=== PATIENT | female | born 1980 | race American Indian/Alaskan Native ===

== ENCOUNTER 2017-03-08 02:52 | Emergency (ER) | payer MEDICAID, MEDICARE ==
[~2017-03-08] VITALS: Ht 167.6 cm; Wt 73.0 kg
[2017-03-08] MEDS ORDERED: KETOROLAC 60MG/2ML VIAL IM STA (04:01)
[2017-03-08 04:24] LABS: HEMOGLOBIN. 11.2 g/dL (12.0-16.0); LYMPHOCYTES % 37.6 % (20.0-50.0); MEAN CORPUSCULAR HEMOGLOBIN 29.6 pg (28.0-32.0); MEAN CORPUSCULAR HGB CONC 33.9 g/dL (31.0-37.0); MEAN CORPUSCULAR VOLUME 87.4 fL (81.0-99.0); MEAN PLATELET VOLUME 7.1 fl (7.4-10.4); MONOCYTES % 10.9 % (2.0-8.0); NEUTROPHILS % 45.5 % (40.0-76.0); PLATELET 214 x1000/uL (130-400); RED BLOOD CELL COUNT 3.78 mill/uL (4.2-5.4); WHITE BLOOD COUNT 5.4 x1000/uL (4.5-11.0)
[2017-03-08 04:26] LABS: CLARITY URINE CLEAR (CLEAR); COLOR URINE YELLOW (YELLOW); GLUCOSE URINE NEGATIVE (NEGATIVE); KETONES URINE NEGATIVE (NEGATIVE); LEUKOCYTE ESTERASE URINE NEGATIVE (NEGATIVE); NITRITE URINE NEGATIVE (NEGATIVE); OCCULT BLOOD URINE NEGATIVE (NEGATIVE); PH URINE 6.5 (4.5-8.0); PROTEIN URINE NEGATIVE (NEGATIVE)
[2017-03-08 04:29] LABS: INR 1.1; PROTHROMBIN TIME 11.3 sec
[2017-03-08 04:37] LABS: ALANINE AMINOTRANSFERASE 14 IU/L (13-61); ALBUMIN 2.6 g/dL (3.4-5.0); ANION GAP 12; CALCIUM 8.9 mg/dL (8.5-10.1); CARBON DIOXIDE 27 mEq/L (21-32); CHLORIDE 109 mEq/L (98-107); INDEX HEMOLYSI 1 (1-3); INDEX ICTERIC 1 (1-4); INDEX LIPEMIC 1 (1-3); LIPASE 105 IU/L (73-393); UREA NITROGEN BLOOD 9 mg/dL (7-21); eGFR > 60 mL/min (>60)
[2017-03-08 06:06] VITALS: BP 116/76
== END 2017-03-08 06:20 | disposition home or self-care (01) ==
LOC: ER 02:56
DX: R10.84 Generalized abdominal pain (principal); I10 Essential (primary) hypertension; E11.9 Type 2 diabetes mellitus without complications; F17.200 Nicotine dependence, unspecified, uncomplicated
CPT/HCPCS: 36415; 80053; 81003; 81025; 83690; 85025; 85610; 96372; 99284; J1885

== ENCOUNTER 2017-10-13 21:40 | Emergency (ER) | payer MEDICARE, MEDICAID ==
[~2017-10-13] VITALS: Ht 167.6 cm; Wt 91.0 kg
[2017-10-13 22:37] VITALS: BP 121/81
[2017-10-14 00:09] LABS: CLARITY URINE CLEAR (CLEAR); COLOR URINE YELLOW (YELLOW); GLUCOSE URINE NEGATIVE (NEGATIVE); KETONES URINE NEGATIVE (NEGATIVE); LEUKOCYTE ESTERASE URINE NEGATIVE (NEGATIVE); NITRITE URINE NEGATIVE (NEGATIVE); OCCULT BLOOD URINE NEGATIVE (NEGATIVE); PROTEIN URINE NEGATIVE (NEGATIVE); SPECIFIC GRAVITY URINE 1.027 (1.005-1.030); UROBILINOGEN URINE 0.2 E.U./dL (0.2-1.0)
== END 2017-10-14 01:07 | disposition left against medical advice (07) ==
LOC: ER 21:40
DX: E11.649 Type 2 diabetes mellitus with hypoglycemia without coma (principal); Z53.21 Procedure and treatment not carried out due to patient leaving prior to being seen by health care provider
CPT/HCPCS: 81003; 81025; 82962

== ENCOUNTER 2019-10-17 08:14 | Emergency (ER) | payer MEDICAID, MEDICARE ==
[~2019-10-17] VITALS: Ht 167.6 cm; Wt 80.0 kg
[2019-10-17 08:17] VITALS: BP 156/76
[2019-10-17] MEDS ORDERED: DIPHENHYDRAMINE 25MG CAPSULE PO ONE (09:15)
[2019-10-17] MEDS ORDERED: DEXAMETHASONE 4MG TABLET PO ONE (09:15)
== END 2019-10-17 09:34 | disposition home or self-care (01) ==
LOC: ER 08:14
DX: B86 Scabies (principal); E11.9 Type 2 diabetes mellitus without complications; I10 Essential (primary) hypertension; F17.200 Nicotine dependence, unspecified, uncomplicated; Z90.49 Acquired absence of other specified parts of digestive tract
CPT/HCPCS: 99281; J8540; Q0163

== ENCOUNTER 2019-10-24 01:56 | Emergency (ER) | payer SELFPAY ==
[~2019-10-24] VITALS: Ht 167.6 cm; Wt 100.0 kg
[2019-10-24] MEDS ORDERED: CEPHALEXIN 250MG CAPSULE PO ONE (04:30)
[2019-10-24] MEDS ORDERED: DIPHENHYDRAMINE 50MG CAPSULE PO ONE (04:30)
[2019-10-24 05:45] VITALS: BP 132/86
== END 2019-10-24 11:00 | disposition home or self-care (01) ==
LOC: ER 01:56
DX: S30.861A Insect bite (nonvenomous) of abdominal wall, initial encounter (principal); L03.311 Cellulitis of abdominal wall; E11.9 Type 2 diabetes mellitus without complications; W57.XXXA Bitten or stung by nonvenomous insect and other nonvenomous arthropods, initial encounter; Y93.89 Activity, other specified; Y92.89 Other specified places as the place of occurrence of the external cause; Y99.8 Other external cause status
CPT/HCPCS: 99283; Q0163

== ENCOUNTER 2019-10-30 04:36 | Emergency (ER) | payer SELFPAY ==
[~2019-10-30] VITALS: Ht 162.6 cm; Wt 75.0 kg
[2019-10-30 04:45] VITALS: BP 0/0
[2019-10-30] MEDS ORDERED: DIPHENHYDRAMINE 25MG CAPSULE PO ONE (06:30)
== END 2019-10-30 06:44 | disposition home or self-care (01) ==
LOC: EDBD → ER 04:36
DX: L29.9 Pruritus, unspecified (principal); F17.290 Nicotine dependence, other tobacco product, uncomplicated; E11.9 Type 2 diabetes mellitus without complications
CPT/HCPCS: 99282; Q0163

== ENCOUNTER 2019-11-14 09:11 | Emergency (ER) | payer SELFPAY | END 2019-11-14 09:51 | disposition left against medical advice (07) | LOC: EDBD → ER 09:11 | DX: R10.9 Unspecified abdominal pain (principal); Z53.21 Procedure and treatment not carried out due to patient leaving prior to being seen by health care provider ==

== ENCOUNTER 2019-11-15 03:28 | Emergency (ER) | payer SELFPAY ==
[~2019-11-15] VITALS: Ht 167.6 cm; Wt 95.0 kg
[2019-11-15] MEDS ORDERED: ACETAMINOPHEN WITH CODEINE 300/30MG TABLET PO ONE (06:30)
[2019-11-15 08:20] VITALS: BP 166/95
== END 2019-11-15 08:30 | disposition home or self-care (01) ==
LOC: ER 03:28 → EDUNIT# 03:28 → ER 08:30
DX: M79.18 Myalgia, other site (principal); I10 Essential (primary) hypertension; F99 Mental disorder, not otherwise specified
CPT/HCPCS: 73030; 73130; 99283

== ENCOUNTER 2019-11-16 22:12 | Emergency (ER) | payer SELFPAY ==
[~2019-11-16] VITALS: Ht 165.1 cm; Wt 79.0 kg
[2019-11-17 02:45] VITALS: BP 180/119
== END 2019-11-17 04:20 | disposition home or self-care (01) ==
LOC: ER 22:12
DX: G89.29 Other chronic pain (principal); R10.9 Unspecified abdominal pain; E11.9 Type 2 diabetes mellitus without complications; I10 Essential (primary) hypertension
CPT/HCPCS: 99282

== ENCOUNTER 2020-06-17 15:41 | Emergency (ER) | payer SELFPAY ==
[~2020-06-17] VITALS: Ht 182.9 cm; Wt 113.0 kg
[2020-06-17] MEDS ORDERED: FAMOTIDINE 20MG/2ML VIAL IV STA (16:00)
[2020-06-17] MEDS ORDERED: SODIUM CHLORIDE 0.9% 1,000 ML IV ONE (16:00)
[2020-06-17] MEDS ORDERED: ONDANSETRON HCL 4MG/2ML INJ IV STA (16:00)
[2020-06-17 16:38] LABS: CHLORIDE 109 mEq/L (98-107)
[2020-06-17 16:41] LABS: INR 1.1; PROTHROMBIN TIME 11.5 sec (9.6-11.0)
[2020-06-17 16:42] LABS: ETHANOL BLOOD < 10 mg/dL
[2020-06-17 16:43] LABS: EOSINOPHILS % 2.1 % (0.0-5.0); HEMATOCRIT. 43.5 % (36.0-48.0); HEMOGLOBIN. 14.9 g/dL (12.0-16.0); LYMPHOCYTES % 36.6 % (20.0-50.0); MEAN CORPUSCULAR HEMOGLOBIN 31.5 pg (28.0-32.0); MEAN CORPUSCULAR VOLUME 91.8 fL (81.0-99.0); MONOCYTES % 11.8 % (2.0-8.0); NEUTROPHILS % 48.5 % (40.0-76.0); PLATELET 242 x1000/uL (130-400); RED BLOOD CELL COUNT 4.73 mill/uL (4.2-5.4); RED CELL DISTRIBUTION WIDTH 13.9 % (11.6-14.6)
[2020-06-17] MEDS ORDERED: KETOROLAC 30MG/ML VIAL IV ONE (16:45)
[2020-06-17 16:46] LABS: CLARITY URINE CLOUDY (CLEAR); KETONES URINE TRACE (NEGATIVE); LEUKOCYTE ESTERASE URINE 1+ (NEGATIVE); NITRITE URINE NEGATIVE (NEGATIVE); OCCULT BLOOD URINE 3+ (NEGATIVE); PROTEIN URINE 3+ (NEGATIVE); SPECIFIC GRAVITY URINE 1.022 (1.005-1.030)
[2020-06-17 16:50] LABS: *AMPHETAMINES SCREEN URINE NEGATIVE (NEGATIVE); *BARBITURATES SCREEN URINE NEGATIVE (NEGATIVE); *BENZODIAZEPINES SCREEN URINE NEGATIVE (NEGATIVE); *COCAINE SCREEN URINE NEGATIVE (NEGATIVE); METHADONE URINE SCREEN NEGATIVE (NEGATIVE)
[2020-06-17 16:51] LABS: COLOR URINE BLOODY (YELLOW)
[2020-06-17 16:52] LABS: CANNABINOID URINE SCREEN NEGATIVE (NEGATIVE); OPIATES URINE SCREEN NEGATIVE (NEGATIVE); PHENCYCLIDINE URINE SCREEN NEGATIVE (NEGATIVE)
[2020-06-17 17:07] LABS: HCG SCREEN NEGATIVE
[2020-06-17 17:37] VITALS: BP 155/108
== END 2020-06-17 18:19 | disposition home or self-care (01) ==
LOC: ER 15:41
DX: N39.0 Urinary tract infection, site not specified (principal); N93.9 Abnormal uterine and vaginal bleeding, unspecified; I10 Essential (primary) hypertension; E11.9 Type 2 diabetes mellitus without complications
CPT/HCPCS: 36415; 74176; 76856; 80053; 80305; 80320; 81003; 81025; 83690; 84484; 84703; 85025; 85610; 87086; 93005; 96361; 96374; 96375; 99285; J1885; J2405; J3490; J7030; G0480

== ENCOUNTER 2020-12-28 17:35 | Emergency (ER) | payer SELFPAY ==
[~2020-12-28] VITALS: Ht 170.2 cm; Wt 120.0 kg
[2020-12-28 17:40] VITALS: BP 182/119
== END 2020-12-28 18:48 | disposition left against medical advice (07) ==
LOC: ER 17:35
DX: Z53.21 Procedure and treatment not carried out due to patient leaving prior to being seen by health care provider (principal)
CPT/HCPCS: 93005

== ENCOUNTER 2024-04-15 01:09 | Emergency (ER) | payer MEDICAID ==
[~2024-04-15] VITALS: Ht 177.8 cm; Wt 80.0 kg
[2024-04-15 01:12] VITALS: TEMP 98.2; O2SAT 100
[2024-04-15 01:50] VITALS: BP 147/98; PULSE 99; RESP 12
[2024-04-15] MEDS ORDERED: GUAI600T26 MT (02:02)
[2024-04-15] MEDS: GUAIFENESIN 600MG ER TABLET PO SCH (02:40)
== END 2024-04-15 02:47 | disposition home or self-care (01) ==
LOC: ER 01:09
DX: K92.2 Gastrointestinal hemorrhage, unspecified (principal); Z00.00 Encounter for general adult medical examination without abnormal findings; E11.9 Type 2 diabetes mellitus without complications; I10 Essential (primary) hypertension
CPT/HCPCS: 99283; Z7610